=== PATIENT | male | born 1945 | race Native Hawaiian/Other Pacific Islander ===

== ENCOUNTER 2017-07-27 05:40 | Outpatient (CLI) | payer OTHER ==
[~2017-07-27 05:40] MED LIST: CIPRO500 MG PO; COZAAR100 MG PO; LIPITOR10 MG PO; NASONEX50 MCG/AC NAS; OMEPRAZOLE20 M1 OR; POT CHLORIDE10 MEQ OR; TETA5INJ3 INJ
[2017-07-27 06:11] LABS: PLATELET COUNT 171 K/uL (142-355)
== END 2017-07-27 22:51 | disposition home or self-care (01) ==
LOC: LABW 05:40
PROVIDERS: Internal Medicine
DX: I10 Essential (primary) hypertension (principal); E78.00 Pure hypercholesterolemia, unspecified; N40.0 Benign prostatic hyperplasia without lower urinary tract symptoms
CPT/HCPCS: 36415; 80053; 80061; 81000; 84443; 85027

== ENCOUNTER 2017-11-09 06:03 | Outpatient (CLI) | payer OTHER | END 2017-11-09 23:43 | disposition home or self-care (01) | LOC: LABW 06:03 | PROVIDERS: Internal Medicine | DX: I10 Essential (primary) hypertension (principal); E78.00 Pure hypercholesterolemia, unspecified | CPT/HCPCS: 36415; 80053; 80061 ==

== ENCOUNTER 2018-05-23 05:54 | Outpatient (CLI) | payer OTHER ==
[2018-05-23 06:25] LABS: PLATELET COUNT 171 K/uL (142-355)
== END 2018-05-23 19:08 | disposition home or self-care (01) ==
LOC: LABW 05:54
PROVIDERS: Internal Medicine
DX: Z00.00 Encounter for general adult medical examination without abnormal findings (principal); Z12.5 Encounter for screening for malignant neoplasm of prostate; Z12.11 Encounter for screening for malignant neoplasm of colon; I10 Essential (primary) hypertension; Z79.899 Other long term (current) drug therapy; N40.0 Benign prostatic hyperplasia without lower urinary tract symptoms
CPT/HCPCS: 36415; 80053; 80061; 81000; 82272; 84153; 84439; 84443; 85027

== ENCOUNTER 2018-05-24 12:22 | Outpatient (CLI) | payer OTHER | END 2018-05-24 20:45 | disposition home or self-care (01) | LOC: LAB 12:22 | DX: Z00.00 Encounter for general adult medical examination without abnormal findings (principal); Z12.5 Encounter for screening for malignant neoplasm of prostate; Z12.11 Encounter for screening for malignant neoplasm of colon | CPT/HCPCS: 82272 ==

== ENCOUNTER 2018-05-25 13:08 | Outpatient (CLI) | payer OTHER | END 2018-05-25 23:05 | disposition home or self-care (01) | LOC: LAB 13:08 | DX: Z00.00 Encounter for general adult medical examination without abnormal findings (principal); Z12.5 Encounter for screening for malignant neoplasm of prostate; Z12.11 Encounter for screening for malignant neoplasm of colon | CPT/HCPCS: 82272 ==

== ENCOUNTER → 2018-07-14 09:59 | Outpatient (CLI) | payer OTHER | END | disposition home or self-care (01) | LOC: AMB 09:59 | DX: S60.511A Abrasion of right hand, initial encounter (principal); V49.9XXA Car occupant (driver) (passenger) injured in unspecified traffic accident, initial encounter ==

== ENCOUNTER 2019-05-05 11:09 | Outpatient (CLI) | payer OTHER | END 2019-05-05 16:00 | disposition home or self-care (01) | LOC: LABW 11:09 | DX: R19.7 Diarrhea, unspecified (principal) | CPT/HCPCS: 87015; 87045; 87324; 87328; 87329; 87449; 87899 ==

== ENCOUNTER 2019-12-07 05:56 | Outpatient (CLI) | payer OTHER ==
[2019-12-07 06:19] LABS: PLATELET COUNT 161 K/uL (142-355)
== END 2019-12-07 21:38 | disposition home or self-care (01) ==
LOC: LABW 05:56
PROVIDERS: Internal Medicine
DX: Z00.00 Encounter for general adult medical examination without abnormal findings (principal); Z79.899 Other long term (current) drug therapy
CPT/HCPCS: 36415; 80053; 80061; 81000; 84439; 84443; 85027

== ENCOUNTER 2021-08-25 16:23 | Emergency (ER) | payer OTHER ==
[~2021-08-25] VITALS: Ht 30.5 cm; Wt 0.5 kg
== END 2021-08-25 17:43 | disposition expired ==
LOC: ED 16:23
PROC: 5A12012 Performance of Cardiac Output, Single, Manual (ICD-10-PCS; principal; 2021-08-25)
PROC: 0BH17EZ Insertion of Endotracheal Airway into Trachea, Via Natural or Artificial Opening (ICD-10-PCS; 2021-08-25)
DX: I46.9 Cardiac arrest, cause unspecified (principal); W01.190A Fall on same level from slipping, tripping and stumbling with subsequent striking against furniture, initial encounter; Y92.098 Other place in other non-institutional residence as the place of occurrence of the external cause; Z98.890 Other specified postprocedural states
CPT/HCPCS: 31500; 92950; 96360; 96374; 96375; 99285; J0171; J3490